=== PATIENT | female | born 2000 | race Caucasian/White ===

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

== ENCOUNTER 2018-02-28 21:10 | Emergency (ER) ==
[2018-02-28 21:18] VITALS: BP 129/76; TEMP 98.5; BMI 26.6
--- NOTE | 2018-02-28 22:18 | CT ---
Exam: CT of the abdomen and pelvis without contrast History: Urinary tract infection with worsening lower abdominal pain Technique: [address] of the abdomen and pelvis without intravascular contrast FINDINGS: The lung bases are clear. No significant liver abnormality. The adrenals, pancreas and s pleen are unremarkable. The stomach and hiatus are unremarkable.Prior cholecystectomy. Kidneys and proximal collecting system are unremarkable. Prior appendectomy. Bowel loops demonstrate normal scottie iber. No inflamatory change seen in the mesentery or retroperitoneum. Vascular structures appear no rmal by noncontrast CT. Intrauterine device in place. Pelvic genitourinary structures appear normal. Pelvic bowel loops are unremarkable. No inflammatory change in the pelvic fat. No acute abnormality of the abdominal or p elvic skeleton. Impression: 1. No inflammatory process, bowel or urinary obstruction is seen. No acute findings of the abdomen or pelvis.
[2018-02-28] MEDS ORDERED: MACROBID PO STA (22:26)
[2018-02-28] MEDS ORDERED: PYRIDIUM PO STA (22:27)
--- NOTE | 2018-02-28 22:30 | ED.PDOC ---
General ED Provider: Dr. GRUPO ALVARADO-ER Chief Complaint: Back Pain Stated Complaint: it hurts to pee Time Seen by Physician: 21:15 Mode of Arrival: Walk-In Information Source: Patient, Family Exam Limitations: No limitations Primary Care Provider: GRUPO ALVARADO Nursing and Triage Documentation Reviewed and Agree: Yes Does patient meet sepsis criteria?: No System Inflammatory Response Syndrome: Not Applicable Sepsis Protocol: For patient's 13 years and over: Temp is 96.8 and below OR 101 and greater Pulse >90 BPM Resp >20/minute Acutely Altered Mental Status Are patient's symptoms suggestive of a new infection, such as: -Pneumonia -Skin, Soft Tissue -Endocarditis -UTI -Bone, Joint Infection -Implantable Device -Acute Abdominal Infection -Wound Infection -Meningitis -Blood Stream Catheter Infection -Unknown Complaint Exam - UTI Female Complaint/Exam Patient Complains of: Reports: Painful urination Onset/Duration: 3 daus Symptoms Are: Still present Initial Severity: Mild Current Severity: Mild Location of Pain: Reports: Flank Associated Signs and Symptoms: Reports: Flank pain. Denies: Fever, Chills Patient Rh Status: Unknown Differential Diagnoses: Cystitis Review of Systems - Review Of Systems Constitutional: Reports: No symptoms Eyes: Reports: No symptoms Ears, Nose, Mouth, Throat: Reports: No symptoms Respiratory: Reports: No symptoms Cardiac: Reports: No symptoms GI: Reports: No symptoms : Reports: Dysuria, Flank pain Musculoskeletal: Reports: No symptoms, Back pain Skin: Reports: No symptoms Neurological: Reports: No symptoms Endocrine: Reports: No symptoms Hematologic/Lymphatic: Reports: No symptoms All Other Systems: Reviewed and Negative Past Medical History - Past Medical History Previously Healthy: No Endocrine: Reports: None Cardiovascular: Reports: None Respiratory: Reports: None Hematological: Reports: None Gastrointestinal: Reports: None Genitourinary: Reports: None Neuro/Psych: Reports: None Musculoskeletal: Reports: None Cancer: Reports: None Last Menstrual Period: 1 YEAR AGO, HAS IUD - Surgical History General Surgical History: Reports: Cholecystectomy - Family History Family History: Reports: None - Social History Smoking Status: Never smoker Hx Substance Use: No Alcohol Screening: None - Immunizations Tetanus Shot up to Date: Yes Physical Exam - Physical Exam Appearance: Well-appearing, No pain distress, Well-nourished Pain Distress: Mild Eyes: KELSEY, EOMI, Conjunctiva clear ENT: Ears normal, Nose normal, Oropharynx normal Neck: Supple Respiratory: Airway patent, Breath sounds clear, Breath sounds equal, Respirations nonlabored Cardiovascular: RRR, Pulses normal, No rub, No murmur GI/: Soft, Nontender, No masses, Bowel sounds normal, No Organomegaly Musculoskeletal: Normal strength, ROM intact, No edema, No calf tenderness Skin: Warm, Dry, Normal color Neurological: Sensation intact, Motor intact, Reflexes intact, Cranial nerves intact, Alert, Oriented Psychiatric: Affect appropriate, Mood appropriate Interpretation - Radiology Interpretation Radiology Interpretation By: Radiologist Radiology Results: Negative Exam Interpreted: CT Scan Critical Care Note - Critical Care Note Total Time (mins): 0 Course - Course Hematology/Chemistry: 02/28/18 21:44 02/28/18 21:44 Orders, Labs, Meds: Lab Review 02/28/18 02/28/18 02/28/18 21:25 21:44 21:44 WBC 6.22 RBC 4.11 L Hgb 13.1 Hct 36.2 L MCV 88.1 MCH 31.9 H MCHC 36.2 H RDW Coeff of Elida 12.4 Plt Count 329 Immature Gran % (Auto) 0.2 Neut % (Auto) 44.9 Lymph % (Auto) 46.5 Laurel % (Auto) 6.3 Eos % (Auto) 1.8 Baso % (Auto) 0.3 Immature Gran # (Auto) 0.0 Neut # (Auto) 2.8 Lymph # (Auto) 2.9 Laurel # (Auto) 0.4 Eos # (Auto) 0.1 Baso # (Auto) 0.0 ESR 5 Sodium 138.2 Potassium 3.99 Chloride 101.9 Carbon Dioxide 29.3 Anion Gap 10.99 BUN 17.2 H Creatinine 0.93 Estimated GFR (MDRD) 78.00 BUN/Creatinine Ratio 18.49 Glucose 85.7 Calcium 9.53 Total Bilirubin 0.70 AST 34.0 H ALT 17.4 Alkaline Phosphatase 59.4 Total Protein 7.89 Albumin 4.70 Globulin 3.19 Albumin/Globulin Ratio 1.47 Amylase 93.3 Lipase 99.9 Serum , Qual Urine Color Yellow Urine Clarity Cloudy Urine pH 7.0 Ur Specific Ava 1.025 Urine Protein Negative Urine Glucose (UA) Negative Urine Ketones Negative Urine Blood 1+ Urine Nitrite Negative Urine Bilirubin Negative Urine Urobilinogen 1.0 Ur Leukocyte Esterase 1+ Urine Microscopic RBC 5-10 Urine Microscopic WBC 10-20 Ur Squamous Epith Cells 5-10 Amorphous Sediment 2+ Urine Bacteria 2+ 02/28/18 21:44 WBC RBC Hgb Hct MCV MCH MCHC RDW Coeff of Elida Plt Count Immature Gran % (Auto) Neut % (Auto) Lymph % (Auto) Laurel % (Auto) Eos % (Auto) Baso % (Auto) Immature Gran # (Auto) Neut # (Auto) Lymph # (Auto) Laurel # (Auto) Eos # (Auto) Baso # (Auto) ESR Sodium Potassium Chloride Carbon Dioxide Anion Gap BUN Creatinine Estimated GFR (MDRD) BUN/Creatinine Ratio Glucose Calcium Total Bilirubin AST ALT Alkaline Phosphatase Total Protein Albumin Globulin Albumin/Globulin Ratio Amylase Lipase Serum , Qual Negative Urine Color Urine Clarity Urine pH Ur Specific Ava Urine Protein Urine Glucose (UA) Urine Ketones Urine Blood Urine Nitrite Urine Bilirubin Urine Urobilinogen Ur Leukocyte Esterase Urine Microscopic RBC Urine Microscopic WBC Ur Squamous Epith Cells Amorphous Sediment Urine Bacteria Orders Category Date Time Status AMYLASE Stat LAB 02/28/18 21:44 Completed CBC W/ AUTO DIFF Stat LAB 02/28/18 21:44 Completed COMPREHENSIVE METABOLIC PANEL Stat LAB 02/28/18 21:44 Completed ESR Stat LAB 02/28/18 21:44 Completed LIPASE Stat LAB 02/28/18 21:44 Completed SERUM TEST [SERUM ] Stat LAB 02/28/18 21:44 Completed URINALYSIS C & S IF INDICATED Stat LAB 02/28/18 21:25 Completed URINE CULTURE Stat LAB 02/28/18 21:25 Received Nitrofurantoin Monohyd/M-Cryst [Macrobid] MEDS 02/28/18 22:26 Stat 100 mg PO ONCE STA Phenazopyridine HCl [Pyridium] MEDS 02/28/18 22:27 Stat 200 mg PO ONCE STA CT ABDOMEN/PELVIS WO CONTRAST Stat RADS 02/28/18 21:35 Completed Medications Generic Name Dose Route Start Last Admin Trade Name Freq PRN Reason Stop Dose Admin Nitrofurantoin Macrocrystals 100 mg 02/28/18 22:26 Macrobid PO 02/28/18 22:27 ONCE STA Phenazopyridine HCl 200 mg 02/28/18 22:27 Pyridium PO 02/28/18 22:28 ONCE STA Vital Signs: Temp Pulse Resp BP Pulse Ox 02/28/18 21:11 98.5 F 79 18 129/76 97 Departure - Departure Time of Disposition: 22:29 Disposition: HOME SELF-CARE Discharge Problem: UTI (urinary tract infection) Qualifiers: Urinary tract infection type: acute cystitis Hematuria presence: without hematuria Qualified Code(s): N30.00 - Acute cystitis without hematuria Instructions: Urinary Tract Infection in Women (ED) Condition: Good Pt referred to PMD for follow-up: Yes IPMP verified?: No Additional Instructions: pyridium 200mg tid with food #9---macrobid bid x 7 days---repeeat ua in one week and contact my office for urology referrral Allergies/Adverse Reactions: Allergies No Known Allergies Allergy (Verified 02/28/18 21:17) Home Medications: Ambulatory Orders Levonorgestrel [Mirena] 1 each IY DIRECTED 02/28/18 Disposition Discussed With: Patient, Family
== END 2018-02-28 22:45 | disposition home or self-care (01) ==
LOC: ED 21:10
DX: N30.00 Acute cystitis without hematuria (principal)
CPT/HCPCS: 36415; 80053; 81001; 82150; 83690; 84703; 85025; 85651; 87086; 87186; 99283

== ENCOUNTER 2018-03-11 09:55 | Outpatient (CLI) | END 2018-03-11 09:56 | disposition home or self-care (01) | LOC: LAB 09:55 | PROVIDERS: ATTEND Family Medicine | DX: R39.15 Urgency of urination (principal) | CPT/HCPCS: 81001; 87086 ==